=== PATIENT | female | born 1995 | race African-American/Black ===

== ENCOUNTER 2017-10-14 08:44 | Emergency (ER) | payer SELFPAY ==
[~2017-10-14] VITALS: Ht 170.2 cm; Wt 76.0 kg
[2017-10-14] MEDS ORDERED: ACETAMINOPHEN 500MG TABLET PO ONE (13:30)
[2017-10-14 18:05] VITALS: BP 117/63
== END 2017-10-14 18:08 | disposition home or self-care (01) ==
LOC: ER 08:44
DX: S42.401A Unspecified fracture of lower end of right humerus, initial encounter for closed fracture (principal); S76.111A Strain of right quadriceps muscle, fascia and tendon, initial encounter; S89.91XA Unspecified injury of right lower leg, initial encounter; S09.8XXA Other specified injuries of head, initial encounter; E04.2 Nontoxic multinodular goiter; V13.4XXA Pedal cycle driver injured in collision with car, pick-up truck or van in traffic accident, initial encounter; Y93.89 Activity, other specified; Y92.488 Other paved roadways as the place of occurrence of the external cause
CPT/HCPCS: 29105; 70450; 72125; 72170; 73070; 73562; 99284; L1830; A4565